=== PATIENT | male | born 1960 | race Caucasian/White ===

== ENCOUNTER 2024-07-29 18:16 | Emergency (ER) | payer MEDICARE, OTHER, SELFPAY ==
[2024-07-29 18:23] VITALS: BP 176/93
[2024-07-29 18:40] LABS: % Basophils 0.5 % (0-2); % Eosinophils 0.6 % (0-6); % Immature Granulocytes 0.8 % (0-0.5); % Lymphocytes 25.4 % (20.5-51.1); % Monocytes 7.2 % (1.7-9.3); % Neutrophils 65.5 % (42.2-75.2); Absolute Basophils 0.1 10^3/uL (0-0.2); Absolute Eosinophils 0.1 10^3/uL (0-0.7); Absolute Immature Granulocytes 0.1 10^3/uL (0-0.05); Absolute Lymphocytes 2.6 10^3/uL (1.2-3.4); Absolute Monocytes 0.7 10^3/uL (0.1-0.6); Absolute Neutrophils 6.8 10^3/uL (1.4-6.5); Hemoglobin 14.3 g/dL (13.0-18.0); Mean Corpuscular Hgb 30.2 pg (27.0-31.0); Mean Corpuscular Volume 88.6 fL (80.0-94.0); Mean Platelet Volume 9.4 fL (7.4-10.4); Nucleated Red Blood Cells % 0 % (-); Platelet Count 198 10^3/uL (130-400); Red Blood Cell Count 4.74 10^6/uL (4.70-6.10); Red Cell Dist. Width 13.2 % (11.5-14.5); White Blood Cell Count 10.3 10^3/uL (4.8-10.8)
[2024-07-29 18:41] LABS: Urine Albumin 1+ (Neg - Trace); Urine Bilirubin 1+ (Negative); Urine Character Clear (Clear); Urine Color Yellow; Urine Glucose Negative (Negative); Urine Ketone Negative (Negative); Urine Leukocyte Trace (Negative); Urine Nitrite Negative (Negative); Urine Occult Blood 4+ (Negative); Urine Urobilinogen 1+ (Neg - 1+)
[2024-07-29 18:50] LABS: Urine Mucus Many
[2024-07-29 18:51] LABS: Urine Red Blood Cell 30-40 /HPF (0-2); Urine Squamous Cell 0-2 /LPF (Few)
[2024-07-29 18:52] LABS: Urine Bacteria Few (Negative); Urine White Cell 0-2 /HPF (0-5)
[2024-07-29 18:57] LABS: ALT (SGPT) 20 U/L (0-50); AST (SGOT) 25 U/L (17-59); Albumin 4.8 g/dl (3.5-5.0); Alkaline Phosphatase 118 U/L (38-126); Blood Urea Nitrogen 18 mg/dl (9-20); Calcium 9.5 mg/dl (8.4-10.2); Carbon Dioxide 22 mmol/L (22-30); Chloride 105 mmol/L (98-107); Glucose 107 mg/dl (70-99); Potassium 4.3 mmol/L (3.5-5.1); Sodium 137 mmol/L (135-145); Total Bilirubin 0.5 mg/dl (0.2-1.3); Total Protein 7.1 g/dl (6.3-8.2); eGFR > 60.00
--- NOTE | 2024-07-29 22:34 | ED.GENMED ---
History of Present Illness
General
Chief Complaint: Flank Pain
Source: patient and significant other
Exam Limitations: none
Time Seen by Provider: 07/29/24 22:20
Nursing documentation reviewed up to this point in time: agreed with
History of Present Illness
History of Present Illness:
63-year-old male presents emergency room complaining of right flank pain since this morning, with nausea and vomiting. He admits to short flow with urination. He had a similar episode around .
Past History
Past History
ED Past Medical History: Other (HIV/AID)
ED Past Surgical History: Orthopedic (Left carpal tunnel), Tonsilectomy and Other (Ingrown toenail surgery, right groin I&D)
Social History
Tobacco: Non-smoker
Alcohol: Occasional
Personal: Single
Living: alone
Employment: Disabled
Review of Systems
Review of Systems
Allergies reviewed?: Yes
All Other Systems: Not applicable
Constitutional: Reports no symptoms; Denies fever
EENT: Reports no symptoms
Respiratory: Reports no symptoms
Cardiac: Reports no symptoms
ABD/GI: Reports nausea and vomiting
: Reports frequency and flank pain
Musculoskeletal: Reports no symptoms
Skin: Reports no symptoms
Neurological: Reports no symptoms
Endocrine: Reports no symptoms
Hematologic/Lymphatic: Reports no symptoms
Psychiatric: Reports no symptoms
Phy Exam
Physical Exam
Physical Exam:
Physical Exam
General: no apparent distress, not acutely ill
Neck: supple. no meningeal signs. normal posterior pharynx
Heart: s1/s2 regular rate and rhythm, no murmur. equal radial
pulses.
HEENT: Pupils equal round reactive to light, EOMI
Lungs: no acute respiratory distress. clear bilaterally
Abdomen: normal bowel sounds. not tender. no CVAT
Neuro: alert and oriented. no focal neurological deficits cranial nerves II through XII intact
Skin: no rash
Psychiatric: well kept. interactive and cooperative
Extremities: no edema. no calf tenderness. negative homans. good distal pulses
Course
Orders/Labs/Results
Orders:
Orders
07/29/24 18:34
CMP [Comprehensive Metabolic Panel] Urgent
Complete Blood Count/With Diff Urgent
Urinalysis Reflex To Culture Urgent
Date Specimen was Collected: 07/29/24
Time Specimen was Collected: 18:27
Urine Microscopic Reflex Cult Urgent
07/29/24 18:48
CT Abd/pel Without Iv Or Oral Urgent
Comment:
Reason For Exam: FLANK PAIN right sided hematuria
07/29/24 22:33
Ketorolac [Toradol] 15 mg IM NOW STA
Ondansetron Orally Disint [Zofran Odt (Orally Disintegrating)] 4 mg PO NOW STA
Abnormal Lab Results
07/29/24
18:34
Abs Immat Gran (auto) 0.1 H 10^3/uL
(0-0.05)
Absolute Neuts (auto) 6.8 H 10^3/uL
(1.4-6.5)
Absolute Monos (auto) 0.7 H 10^3/uL
(0.1-0.6)
Immature Gran % 0.8 H %
(0-0.5)
Glucose 107 H mg/dl
(70-99)
Ur Occult Blood Reflex 4+ A
(Negative)
Urine Bilirubin 1+ A
(Negative)
Leukocyte Esterase Rfl Trace A
(Negative)
Urine RBC 30-40 A /HPF
(0-2)
Urine Bacteria (Reflex) Few A
(Negative)
Urine Albumin (Reflex) 1+ A
(Neg - Trace)
07/29/24 18:34
07/29/24 18:34
Vital Signs
Initial and Last Documented VS:
Initial Vital Signs
Temp Pulse Resp BP Pulse Ox
98.2 F 86 18 176/93 95
07/29/24 18:23 07/29/24 18:23 07/29/24 18:23 07/29/24 18:23 07/29/24 18:23
Last Documented Vital Signs
Temp Pulse Resp BP Pulse Ox
98.2 F 86 18 17693 95
07/29/24 18:23 07/29/24 18:23 07/29/24 18:23 07/29/24 18:23 07/29/24 18:23
MDM/Problems Addressed
Differential Diagnosis Includes:
Kidney stone, appendicitis
MDM/Problems Addressed:
63-year-old male with right-sided kidney stone. Likely due to passed stone or small stone.
Chronic conditions affecting care: Other (HIV)
*Radiology
Radiology exam reviewed: radiology read reviewed (CT abdomen pelvis shows 5 mm kidney stone, and small punctate stones in the lower pole)
*Pulse Oximetry
Patient hypoxic: no
*Critical Care Note
Total Time (30-74mins, 75-104mins- exclusive of procedures): Not Applicable
Patient Management
Social determinants of health affecting care: Living situation
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
Escalation/DeEscalation of care consider admission/obs:
Admit not indicated
ED Attending Note
-
Portions of this chart may have been created with voice recognition software.� Occasional wrong word or��sound alike� substitutions may have occurred due to the inherent limitations of voice recognition software.
Discharge Plan
Departure
Patient Disposition: Home (Routine Discharge)
Date of Disposition: 07/29/24
Time of Disposition: 22:41
Patient with high blood pressure during this ER visit?: Yes
Condition: Good
Discharge Problem:
Acute right flank pain, Kidney stone on right side
Instructions: Kidney Stones (DC), Flank Pain (DC), BLOOD PRESSURE
Prescriptions:
New
ondansetron 4 mg tablet,disintegrating
4 mg PO Q8H PRN (Reason: nausea and vomiting) 7 Days Qty: 7 0RF
No Action
famotidine 20 MG tablet
20 mg PO HS
raltegravir [Isentress] 400 MG tablet
400 mg PO BID
omeprazole 20 MG tablet,delayed release (DR/EC)
20 mg PO BID
darunavir [Prezista] 600 MG tablet
600 mg PO BID
ritonavir 100 MG tablet
100 mg PO BID
etravirine [Intelence] 200 MG tablet
200 mg PO BID
Referrals:
Christiano Bear MD [Active] - Call in 1-3 days for appt
Archie Willams MD [Family Provider] -
Interventions
Interventions:
*Risk Screen - Suicide Last Done: 07/29/24 18:27
[facility]-Ccxlzv-Nnjgxokxca Assessment Last Done: 07/29/24 21:55
ED-Male Genitourinary Assessment Last Done: 07/29/24 21:55
Discharge Date and Time
Print Language: JAPANESE
[2024-07-29] MEDS: TORADOL 15 MG IM (22:45)
[2024-07-29] MEDS: ZOFRAN ODT (ORALLY DISINTEGRATING) 4 MG PO (22:45)
[2024-07-29 22:53] VITALS: BP 117/80
== END 2024-07-29 23:09 | disposition home or self-care (01) ==
LOC: EMR 18:16
PROVIDERS: Emergency Medicine; EMERGENCY PHYSICIAN Emergency Medicine; FAMILY PHYSICIAN Internal Medicine
DX: N20.0 Calculus of kidney (principal); R10.9 Unspecified abdominal pain
CPT/HCPCS: 99284; 96372; 74176; 80053; 81003; 81015; 85025

== ENCOUNTER 2024-08-09 22:36 | Inpatient (IN) | payer MEDICARE, OTHER, SELFPAY ==
[2024-08-09 18:00] VITALS: BP 183/101
--- NOTE | 2024-08-09 18:00 | ED.GENMED ---
ED Provider Triage
<Lila Morales PA-C - Last Filed: 08/09/24 18:03>
-
Patient seen by provider in Triage?: Seen in Triage
Attestation: A medical screening examination has been initiated by a qualified medical provider. Based on the assessment performed at this time, it has been determined that an emergent medical condition may exist and the patient has been informed
that further medical evaluation and possible additional diagnostic testing may be needed.
HPI: 63yoM here with R flank pain and vomiting. Urine appears dark. Seen in ED on 07/29 and diagnosed with an intrarenal stone. Pain more severe today.
GENERAL: Alert , in no apparent distress
EYE: No visual abnormalities.
NECK: Trachea midline
ENT: No visible abnormalities.
LUNGS: No acute respiratory distress
NEUROLOGICAL: Alert and oriented
SKIN: Skin intact. No visible changes.
MUSCULOSKELETAL: Moving extremities normally
PSYCH: Normal and appropriate interaction.
This is a medical evaluation conducted in person to initiate diagnostic evaluation and provide initial therapeutics. Please see further documentation by the treating clinician.
CBC, CMP, UA, and CT abdomen ordered.
History of Present Illness
<Lila Morales PA-C - Last Filed: 08/09/24 18:03>
General
Chief Complaint: Flank Pain
Time Seen by Provider: 08/09/24 20:19
<Isabelle Balbuena PA-C - Last Filed: 08/09/24 23:05>
General
Source: patient
Exam Limitations: none
Nursing documentation reviewed up to this point in time: agreed with
History of Present Illness
History of Present Illness:
pt is a 63 y/o M with h/o HIV on haart
followed by efrain
here on 07/29 with R flank pain and told he may have already passed a kidney stone; had blood in urine, no fever; 5 mm R renal pole stone only no sitns of obstruction
went home and was going to see uroogist outpatient but never got appt
started having nauesa/vomiting/'flu sickeness' which he has had the past few days, not feleing well
today vomited multiple times, feels dehydrated
and last night started with pain again R flank regio simlar to 07/29
pain is severe at times
mild low grade temp
no diarrhea
pt preseumed he got sick from being around a lot of people in the [place].
Past History
<Lila Morales PA-C - Last Filed: 08/09/24 18:03>
Past History
ED Past Medical History: Other (HIV/AID)
ED Past Surgical History: Orthopedic (Left carpal tunnel), Tonsilectomy and Other (Ingrown toenail surgery, right groin I&D)
Social History
Tobacco: Non-smoker
Alcohol: Occasional
Personal: Single
Living: alone
Employment: Disabled
Review of Systems
<Isabelle Balbuena PA-C - Last Filed: 08/09/24 23:05>
Review of Systems
Allergies reviewed?: Yes
All Other Systems: Not applicable
Phy Exam
<Isabelle Balbuena PA-C - Last Filed: 08/09/24 23:05>
Physical Exam
Physical Exam:
GENERAL: Alert, uncomfortable
Neck: supple
CARDIAC: Regular rate and rhythm .
LUNGS: Clear breath sounds bilaterally, no acute respiratory distress, no wheezes/rales/rhonchi
ABDOMEN: Soft, normal bowel sounds, nondistended, mild R flank tenderness, no guarding, no rebound, neg kidd's
: normal inspection of region
nontender testicles b/l
no rashes
NEUROLOGICAL: Alert and oriented, no focal neuro deficits
SKIN: Warm and dry, skin intact.
PSYCH: Normal and appropriate interaction.
Course
<Lila Morales PA-C - Last Filed: 08/09/24 18:03>
Orders/Labs/Results
Orders:
Orders
08/09/24 18:03
CT Abd/pel Without Iv Or Oral Urgent
Comment:
Reason For Exam: R flank pain
08/09/24 18:07
Complete Blood Count/With Diff Urgent
Comprehensive Metabolic Panel Urgent
08/09/24 18:11
Urinalysis Reflex To Culture Urgent
Date Specimen was Collected: 08/09/24
Time Specimen was Collected: 18:04
Urine Microscopic Reflex Cult Urgent
Urine Culture Urgent
SANTA Source: U
Specimen Description:
Date Specimen was Collected: 08/09/24
Time Specimen was Collected: 18:04
08/09/24 20:21
CefTRIAXone [Rocephin] 1,000 mg IV NOW STA
08/09/24 20:49
0.9% Sodium Chloride 1000 ml [Nss] 1,000 ml IV BOLUS
08/09/24 20:56
HYDROmorphone [Dilaudid] 0.5 mg IV NOW STA
Ketorolac [Toradol] 15 mg IV NOW STA
Ondansetron Injectable [Zofran] 4 mg IV NOW STA
Tamsulosin [Flomax] 0.4 mg PO NOW STA
08/09/24 22:00
Flush (0.9% Sodium Chloride) [Flush (Nss)] See Dose Instructions IV PER PROTOCOL
08/09/24 22:02
Nicotine [Nicoderm Transdermal] 7 mg TRANSDERM NOW STA
08/09/24 22:08
Admit/Transfer Patient As Directed
Co-Sign Provider:
Level of Care: Inpatient admission
Assign to:: Medical/Surgical
Physician / Group: Jodi Contreras
Diagnosis: right ureteral obstructing calculus, mild right hydronephrosis
Reason for Hospitalization: right ureteral obstructing calculus, mild right hydronephrosis
Expected length of stay greater than two midnights?: Yes
ELOS- Estimated Length of Stay in days: 3
I certify the patient meets the requirements for IP care: Yes
PRN Pain Medication Management As Directed
May give lesser potent ordered pain med per pt: Yes
preference::
Protocol:: Medication orders for pain may be administered in a
manner that supports deferring to patient preference
when the pt is:
- Requesting an ordered lesser potent pain medication.
Least to most potent pain medications are defined
as: acetaminophen < NSAID < tramadol < opioids
(morphine, oxycodone, hydromorphone).
- Requesting a lesser dose of the same medication IF
ORDERED.
- Requesting a less intrusive route of administration
if both routes are prescribed by the provider (PO <
IV).
08/09/24 22:10
Code Status As Directed
Resuscitation Status: Full Code
Abnormal Lab Results
08/09/24 08/09/24
18:07 18:11
Absolute Neuts (auto) 6.7 H 10^3/uL
(1.4-6.5)
Lymphocytes % 19.3 L %
(20.5-51.1)
Carbon Dioxide 21 L mmol/L
(22-30)
Glucose 105 H mg/dl
(70-99)
Urine Ketones Trace A
(Negative)
Ur Occult Blood Reflex 4+ A
(Negative)
Urine Nitrite (Reflex) Positive A
(Negative)
Urine Bilirubin 1+ A
(Negative)
Leukocyte Esterase Rfl Trace A
(Negative)
Urine RBC 80-90 A /HPF
(0-2)
Urine Bacteria (Reflex) Many A
(Negative)
Urine Albumin (Reflex) 1+ A
(Neg - Trace)
08/09/24 18:07
08/09/24 18:07
Vital Signs
Initial and Last Documented VS:
Initial Vital Signs
Temp Pulse Resp BP Pulse Ox
36.6 C 98 18 183/101 100
08/09/24 18:00 08/09/24 18:00 08/09/24 18:00 08/09/24 18:00 08/09/24 18:00
Last Documented Vital Signs
Temp Pulse Resp BP Pulse Ox
36.8 C 73 16 127/71 94
08/09/24 21:24 08/09/24 22:30 08/09/24 22:30 08/09/24 22:00 08/09/24 22:30
<Isabelle Balbuena PA-C - Last Filed: 08/09/24 23:05>
Orders/Labs/Results
Orders:
Orders
08/09/24 18:03
CT Abd/pel Without Iv Or Oral Urgent
Comment:
Reason For Exam: R flank pain
08/09/24 18:07
Complete Blood Count/With Diff Urgent
Comprehensive Metabolic Panel Urgent
08/09/24 18:11
Urinalysis Reflex To Culture Urgent
Date Specimen was Collected: 08/09/24
Time Specimen was Collected: 18:04
Urine Microscopic Reflex Cult Urgent
Urine Culture Urgent
SANTA Source: U
Specimen Description:
Date Specimen was Collected: 08/09/24
Time Specimen was Collected: 18:04
08/09/24 20:21
CefTRIAXone [Rocephin] 1,000 mg IV NOW STA
08/09/24 20:49
0.9% Sodium Chloride 1000 ml [Nss] 1,000 ml IV BOLUS
08/09/24 20:56
HYDROmorphone [Dilaudid] 0.5 mg IV NOW STA
Ketorolac [Toradol] 15 mg IV NOW STA
Ondansetron Injectable [Zofran] 4 mg IV NOW STA
Tamsulosin [Flomax] 0.4 mg PO NOW STA
08/09/24 22:00
Flush (0.9% Sodium Chloride) [Flush (Nss)] See Dose Instructions IV PER PROTOCOL
08/09/24 22:02
Nicotine [Nicoderm Transdermal] 7 mg TRANSDERM NOW STA
08/09/24 22:08
Admit/Transfer Patient As Directed
Co-Sign Provider:
Level of Care: Inpatient admission
Assign to:: Medical/Surgical
Physician / Group: Jodi Contreras
Diagnosis: right ureteral obstructing calculus, mild right hydronephrosis
Reason for Hospitalization: right ureteral obstructing calculus, mild right hydronephrosis
Expected length of stay greater than two midnights?: Yes
ELOS- Estimated Length of Stay in days: 3
I certify the patient meets the requirements for IP care: Yes
PRN Pain Medication Management As Directed
May give lesser potent ordered pain med per pt: Yes
preference::
Protocol:: Medication orders for pain may be administered in a
manner that supports deferring to patient preference
when the pt is:
- Requesting an ordered lesser potent pain medication.
Least to most potent pain medications are defined
as: acetaminophen < NSAID < tramadol < opioids
(morphine, oxycodone, hydromorphone).
- Requesting a lesser dose of the same medication IF
ORDERED.
- Requesting a less intrusive route of administration
if both routes are prescribed by the provider (PO <
IV).
08/09/24 22:10
Code Status As Directed
Resuscitation Status: Full Code
Abnormal Lab Results
08/09/24 08/09/24
18:07 18:11
Absolute Neuts (auto) 6.7 H 10^3/uL
(1.4-6.5)
Lymphocytes % 19.3 L %
(20.5-51.1)
Carbon Dioxide 21 L mmol/L
(22-30)
Glucose 105 H mg/dl
(70-99)
Urine Ketones Trace A
(Negative)
Ur Occult Blood Reflex 4+ A
(Negative)
Urine Nitrite (Reflex) Positive A
(Negative)
Urine Bilirubin 1+ A
(Negative)
Leukocyte Esterase Rfl Trace A
(Negative)
Urine RBC 80-90 A /HPF
(0-2)
Urine Bacteria (Reflex) Many A
(Negative)
Urine Albumin (Reflex) 1+ A
(Neg - Trace)
08/09/24 18:07
08/09/24 18:07
Vital Signs
Initial and Last Documented VS:
Initial Vital Signs
Temp Pulse Resp BP Pulse Ox
36.6 C 98 18 183/101 100
08/09/24 18:00 08/09/24 18:00 08/09/24 18:00 08/09/24 18:00 08/09/24 18:00
Last Documented Vital Signs
Temp Pulse Resp BP Pulse Ox
36.8 C 73 16 127/71 94
08/09/24 21:24 08/09/24 22:30 08/09/24 22:30 08/09/24 22:00 08/09/24 22:30
Alexlt;Isabelle Balbuena PA-C - Last Filed: 08/09/24 23:05>
MDM/Problems Addressed
Differential Diagnosis Includes:
ureteral lithaisis, uro sepsis
MDM/Problems Addressed:
room 15
clarence mcneill
63 yo M hiv pos on HAART, efrain
07/29 had R flank pain; no ureteral stone then, only 5 mm R renal pole stone
went home and got n/v illness that he thought was GI bug
but last nigth pain worse
now the previous pole stone is in prox R ureter obstructing and urine looks nitrite pos
temp 99.1
dw gabale
ivf, rocephin, pain meds, NPO after midnight likely stent tomorrow
<Isabelle Balbuena PA-C - Last Filed: 08/09/24 23:05>
*Critical Care Note
Total Time (30-74mins, 75-104mins- exclusive of procedures): Not Applicable
ED Attending Note
<Lial Morales PA-C - Last Filed: 08/09/24 18:03>
-
Portions of this chart may have been created with voice recognition software.� Occasional wrong word or��sound alike� substitutions may have occurred due to the inherent limitations of voice recognition software.
Discharge Plan
Departure
Patient Disposition: Admit
Date of Disposition: 08/09/24
Time of Disposition: 20:54
Admit to: Med/Surg
Presentation/result/management discussed w/ accepting MD/DO: Hospitalist
Condition: Fair
Covid-19: Not Applicable
Discharge Problem:
Acute UTI, Calculus of proximal right ureter
Interventions
Interventions:
*Risk Screen - Suicide Last Done: 08/09/24 18:00
*General Assessment Last Done: 08/09/24 18:00
*Neglect/Abuse Screening Last Done: 08/09/24 18:00
ED- Fall Risk Assessment Last Done: 08/09/24 21:27
*ED COVID-19 Vaccine History Last Done: 08/09/24 18:00
ZM-Oirdvw-Ypoydbqouz Assessment Last Done: 08/09/24 21:41
ED-Male Genitourinary Assessment Last Done: 08/09/24 21:41
[2024-08-09 18:19] LABS: Urine Albumin 1+ (Neg - Trace); Urine Bilirubin 1+ (Negative); Urine Character Clear (Clear); Urine Color Yellow; Urine Glucose Negative (Negative); Urine Ketone Trace (Negative); Urine Leukocyte Trace (Negative); Urine Nitrite Positive (Negative); Urine Occult Blood 4+ (Negative); Urine Specific Gravity 1.025 (<1.030); Urine Urobilinogen 1+ (Neg - 1+)
[2024-08-09 18:23] LABS: % Basophils 0.2 % (0-2); % Eosinophils 0.2 % (0-6); % Immature Granulocytes 0.4 % (0-0.5); % Lymphocytes 19.3 % (20.5-51.1); % Monocytes 6.7 % (1.7-9.3); % Neutrophils 73.2 % (42.2-75.2); Absolute Lymphocytes 1.8 10^3/uL (1.2-3.4); Absolute Monocytes 0.6 10^3/uL (0.1-0.6); Absolute Neutrophils 6.7 10^3/uL (1.4-6.5); Hematocrit 41.6 % (39.0-52.0); Hemoglobin 14.2 g/dL (13.0-18.0); Mean Corp Hgb Conc. 34.1 g/dL (33.0-37.0); Mean Corpuscular Hgb 30.2 pg (27.0-31.0); Mean Corpuscular Volume 88.5 fL (80.0-94.0); Mean Platelet Volume 10.1 fL (7.4-10.4); Nucleated Red Blood Cells % 0 % (-); Platelet Count 185 10^3/uL (130-400); White Blood Cell Count 9.2 10^3/uL (4.8-10.8)
[2024-08-09 18:30] LABS: Urine Red Blood Cell 80-90 /HPF (0-2)
[2024-08-09 18:31] LABS: Urine Bacteria Many (Negative); Urine Mucus Moderate; Urine White Cell 0-2 /HPF (0-5)
[2024-08-09 18:36] LABS: ALT (SGPT) 21 U/L (0-50); AST (SGOT) 23 U/L (17-59); Albumin 4.6 g/dl (3.5-5.0); Alkaline Phosphatase 116 U/L (38-126); Blood Urea Nitrogen 15 mg/dl (9-20); Calcium 9.1 mg/dl (8.4-10.2); Carbon Dioxide 21 mmol/L (22-30); Chloride 104 mmol/L (98-107); Glucose 105 mg/dl (70-99); Potassium 4.4 mmol/L (3.5-5.1); Sodium 137 mmol/L (135-145); Total Bilirubin 0.8 mg/dl (0.2-1.3); eGFR > 60.00
[2024-08-09] MEDS: ROCEPHIN 1000 MG IV (21:11)
[2024-08-09] MEDS: DILAUDID 0.5 MG IV (21:16)
[2024-08-09] MEDS: NSS 1000 IV (21:16)
--- NOTE | 2024-08-09 21:16 | HPS.HSE ---
Family Physician
-
Family Physician: Archie Willams
Chief Complaint
-
Nausea/vomiting and right flank pain
History of Present Illness
Patient is a 63-year-old male with past medical history significant for HIV positive and GERD who presented to [facility] for evaluation of continued severe right flank pain radiating to right abdomen and right back. Patient reports he was seen
07/29/2025 and found to have non-obstructing stone, was unable to follow up out patient as of now. He reports increased pain in right abdomen, right flank and right back with associated nausea and vomiting. He also reports dark tea colored urine
with some chills. Denies any fevers, cough, shortness of breath, chest pain, constipation or diarrhea.
Medical History
Past Medical History
Past Medical History: Reports Other
Additional Past Medical History:
HIV
GERD
Gout
nicotine dependency
Past Surgical History: Reports Other
Additional Past Surgical History:
right hand carpel tunnel
tonsillectomy
colonoscopy with polypectomy
rosotomy in neck and back
Social History
Tobacco: Smoker (2-3 cigarettes per day, 6 pack year history )
Alcohol: None
Drug: None
Personal: Single
Living: Alone
Employment: Disabled
Family History
Family History: Not pertinent
Allergies / Home Medications
Allergies reflects when Allergies were last updated in [facility].
Home Medications with original date entered in [facility]
Allergy/Medication List:
Allergies
Allergy/AdvReac Type Severity Reaction Status Date / Time
clindamycin Allergy Rash Verified 08/09/24 18:02
doxycycline Allergy Hives Verified 08/09/24 18:02
stavudine Allergy Pharmacy Verified 08/09/24 18:02
to Review
sulfamethoxazole Allergy Shooting Verified 08/09/24 18:02
[From Bactrim] pain in
arms and
legs
trimethoprim [From Bactrim] Allergy Shooting Verified 08/09/24 18:02
pain in
arms and
legs
Home Medications
darunavir 600 mg tablet (Prezista) 600 mg PO BID 05/13/21
etravirine 200 mg tablet (Intelence) 200 mg PO BID 05/13/21
famotidine 20 mg tablet 20 mg PO HS 05/13/21
omeprazole 20 mg tablet,delayed release 20 mg PO DAILYPRN PRN acid reflux 05/13/21
raltegravir 400 mg tablet (Isentress) 400 mg PO BID 05/13/21
ritonavir 100 mg tablet 100 mg PO BID 05/13/21
omega 2-tpp-ixo-fish oil 1,200 mg (144 mg-216 mg) capsule (Fish Oil) 1 cap PO QPM 08/09/24
therapeutic multivitamin 1 tab PO DAILY 08/09/24
Review of Systems
-
History Source: Patient
Constitutional: Reports Chills
EENT: Reports No Symptoms
Respiratory: Reports No Symptoms
Cardiac: Reports No Symptoms
Abdomen/GI: Reports Abdominal Pain, Nausea and Vomiting
: Reports No Symptoms
Musculoskeletal: Reports No Symptoms
Skin: Reports No Symptoms
Neurological: Reports No Symptoms
Endocrine: Reports No Symptoms
Hematologic/Lymphatic: Reports No Symptoms
Psych: Reports No Symptoms
Physical Exam
Vital Signs
Vital Signs
Temp Pulse Resp BP Pulse Ox
98 F 98 18 183/101 100
08/09/24 18:00 08/09/24 18:00 08/09/24 18:00 08/09/24 18:00 08/09/24 18:00
Physical Exam
General: Well Developed, Well Nourished, No Apparent Distress, Conversant and Pain
HEENT: NormoCephalic, Moist mucous membranes, Atraumatic, [place] Conjunctivae, Nose Appears Normal and Ears Appear Normal
Respiratory: Clear and Non Labored Respirations
Cardiac: S1/S2 and Regular Rhythm; No Murmur, Rub or Gallop
Breast: Deferred by me
GI: Soft, Normal Bowel Sounds and Tender; No Organomegaly
Rectal: Deferred by Provider
Genito-urinary: Deferred by me
Musculoskeletal: No Clubbing, No Cyanosis and No Edema
Skin: Warm and IV/Catheter Site; No Rash
Neuro: Awake, Alert, AO x 3 and Nonfocal/grossly intact
Psych: Calm and Intact Judgment/Insight
Laboratory Results
-
08/09/24 18:07
08/09/24 18:07
Laboratory Results
Total Bilirubin 0.8 mg/dl (0.2-1.3) 08/09/24 18:07
AST 23 U/L (17-59) 08/09/24 18:07
ALT 21 U/L (0-50) 08/09/24 18:07
Alkaline Phosphatase 116 U/L (38-126) 08/09/24 18:07
Data Reviewed
-
CT Scan: Report Reviewed by me (abd/Pelvis: 1). There is a 6 mm proximal right ureteral obstructing calculus associated with mild right hydronephrosis 2). 1 cm right renal cyst 3). Diverticuli are present in the colon no CT evidence of
diverticulitis)
Lab Data: Labs Reviewed by me
Impression/Plan
-
IMPRESSION/PLAN:
#right ureteral obstructing calculus
Abd/Pelvis CT: 1). There is a 6 mm proximal right ureteral obstructing calculus associated with mild right hydronephrosis
2). 1 cm right renal cyst
3). Diverticuli are present in the colon no CT evidence of diverticulitis
- Admit to med/surg
- Urology Consult
- IVF
- IV Rocephin
- pain regimen
- NPO after midnight
#HIV
- continue darunavir, etravirine, raltegravir and ritonavir
#GERD
- continue famotidine and omeprazole
#nicotine dependency
- nicotine patch
- encourage cessation
#Gout
Code Status: Full Code
DVT Prophylaxis: SCDs
[2024-08-09] MEDS: ZOFRAN 4 MG IV (21:17)
[2024-08-09] MEDS: FLOMAX 0.4 MG PO (21:19)
[2024-08-09] MEDS: TORADOL 15 MG IV (21:20)
[2024-08-09 21:25] VITALS: BP 140/94; BMI 33.5
[2024-08-09 22:00] VITALS: BP 127/71
--- NOTE | 2024-08-09 22:23 | W.PN.UPDATE ---
Update Note
Progress Note Update
Patient seen in conjunction with [employer]. I agree with the history and physical. I concur with the assessment and plan as stated.
This is a 63-year-old with past medical history of HIV on ART presenting to ED with recurrent episode of right flank plain. He was seen in july with R nephrolithiasis without obstruction. He now returns with flank pain, nausea/vomiting and
chills.
On arrival in ED hew as afebrile, temp was 98.2, blood pressure 180/100 with a pulse of 67. He was satting 100% on room air. There was no leukocytosis, electrolytes BUN/creatinine were all within normal range.
UA was positive for nitrites, leukocyte esterase and blood. There were also many bacteria.
CT of the abdomen and pelvis showed a 6 mm right renal calculus in the proximal ureter. No obvious hydronephrosis.
A&P
Right urolithiasis wit possible UTI
- admit to med/surg
- IV ceftriaxone
- iv fluids, tamsulosin, strain urine
- NPO after midnight
- No anticoagulation pending surgery
- continue usual ART
DVT PPX - SCDs
Code Status - full code
[2024-08-09] MEDS: NICODERM TRANSDERMAL 7 MG TRANSDERM (22:40)
[2024-08-09 23:00] VITALS: BP 129/74
[2024-08-10] VITALS (21 sets, daily range): BP systolic 109–153; BP diastolic 63–96
[2024-08-10] MEDS: NSS 1000 IV ×2 (00:36→08:56)
[2024-08-10] MEDS: NORVIR PO ×2 (01:17→10:01)
[2024-08-10] MEDS: ISENTRESS PO ×3 (01:17→08:55)
[2024-08-10 06:18] LABS: Hematocrit 37.6 % (39.0-52.0); Hemoglobin 12.3 g/dL (13.0-18.0); Mean Corp Hgb Conc. 32.7 g/dL (33.0-37.0); Mean Corpuscular Hgb 29.9 pg (27.0-31.0); Mean Corpuscular Volume 91.5 fL (80.0-94.0); Mean Platelet Volume 9.4 fL (7.4-10.4); Platelet Count 150 10^3/uL (130-400); Red Blood Cell Count 4.11 10^6/uL (4.70-6.10); Red Cell Dist. Width 13.1 % (11.5-14.5); White Blood Cell Count 5.4 10^3/uL (4.8-10.8)
[2024-08-10 06:31] LABS: Blood Urea Nitrogen 16 mg/dl (9-20); Calcium 8.1 mg/dl (8.4-10.2); Carbon Dioxide 27 mmol/L (22-30); Chloride 106 mmol/L (98-107); Estimated Creatinine Clearance 111 ml/min; Glucose 96 mg/dl (70-99); Potassium 4.2 mmol/L (3.5-5.1); Sodium 138 mmol/L (135-145); eGFR > 60.00
--- NOTE | 2024-08-10 07:25 | W.SUR.PREOP ---
Pre-Operative Surgical Note
-
I have examined this patient prior to the performance of the scheduled procedure.
The patient's condition is unchanged from the time of the current History and
Physical and the patient is able to undergo the scheduled procedure.
CTAP w/o IV contrast => 6 mm proximal right ureteral stone w/ mild hydro
UA => +nitrites, many bacteria, 80-90 RBCs, 0-2 WBCs
Afebrile.
HDS.
Urine notably cloudy upon ER evaluation last night.
Intermittent right flank/abdominal pain and nausea - improved w/ analgesics.
H/o HIV (diagnosed 1987) on HAART w/ ID.
Plan:
- To OR today for cysto + right stent insertion vs. right URS/LL/stone extraction/stent (if feasible)
- Continue IV Ceftriaxone pending UCx
- Surgical consent signed (@OR desk)
- If stent placement only, patient will F/U with Dr. Bear as outpatient to schedule ULS
Detailed discussion including SDM had w/ patient regarding risks, benefits, alternatives, and potential complications of URS/LL/stone extraction/stent insertion.
Risks and complications include but not limited to urosepsis, bleeding, ureteral/bladder injury, risk of ureteral stricture, need for additional procedures/surgeries.
D/w patient at bedside.
D/w Hospitalist.
--- NOTE | 2024-08-10 08:15 | W.PN.HOSP.TC ---
Today's Communication/Plan
-
Discharge today
Assessment / Plan
Assessment / Plan
Physical Exam
General: Well Developed, Well Nourished, No Apparent Distress, Conversant
HEENT: Normocephalic, Moist mucous membranes, Atraumatic
Respiratory: Clear to Auscultation Bilaterally
Cardiac: S1/S2 and Regular Rhythm
GI: Soft, Normal Bowel Sounds and Nontender
Musculoskeletal: No Cyanosis and No Edema
Skin: Warm
Neuro: Awake, Alert, AO x 3 and Nonfocal/grossly intact
Psych: Calm and Intact Judgment/Insight
Assessment/Plan
63-year-old male with past medical history significant for HIV positive and GERD who presented to [place] ED for evaluation of continued severe right flank pain radiating to right abdomen and right back. Patient reports he was seen 07/29/2025 and
found to have non-obstructing stone, was unable to follow up out patient as of now. He reports increased pain in right abdomen, right flank and right back with associated nausea and vomiting. He also reports dark tea colored urine with some chills.
Denies any fevers, cough, shortness of breath, chest pain, constipation or diarrhea.
#Right ureteral obstructing calculus status post cysto, stone dislodgement, stent placement
Abd/Pelvis CT: 1). There is a 6 mm proximal right ureteral obstructing calculus associated with mild right hydronephrosis
2). 1 cm right renal cyst
3). Diverticuli are present in the colon no CT evidence of diverticulitis
- Admit to med/surg
- Urology Consult
- IVF
- Cefpodoxime 200 mg BID for 9 days
- pain regimen
#HIV
- continue darunavir, etravirine, raltegravir and ritonavir
#GERD
- continue famotidine and omeprazole
#nicotine dependency
- nicotine patch
- encourage cessation
#Gout
Code Status: Full Code
DVT Prophylaxis: SCDs
More than 30 minutes spent in discharge including
Final examination of the patient
Summarizing hospital stay
Instructions for continuing care to all relevant caregivers
Preparation of discharge records, prescriptions, and referral forms
Total time spent (in minutes): 38
Anticipated Discharge: Today
Subjective/Interval History
-
Date of Service: August 10, 2024
Patient was seen and examined. Pain was under control.
Objective Data
-
Labs:
Laboratory Results
08/10/24
05:47
WBC 5.4
Hgb 12.3 L
Hct 37.6 L
Plt Count 150
Sodium 138
Potassium 4.2
Chloride 106
Carbon Dioxide 27
BUN 16
Creatinine 0.9
Glucose 96
Calcium 8.1 L
Vital Signs:
Vital Signs
Temp Pulse Resp BP Pulse Ox
98.2 F 72 16 121/78 97
08/10/24 00:37 08/10/24 05:30 08/10/24 05:30 08/10/24 05:46 08/10/24 05:48
[2024-08-10] MEDS: ZOFRAN 4 MG IV (08:54)
[2024-08-10] MEDS: DILAUDID 0.5 MG IV ×2 (08:58→12:57)
[2024-08-10] MEDS: THERAGRAN PO (10:01)
[2024-08-10] MEDS: TORADOL 10 MG IV (12:24)
[2024-08-10] MEDS: NORVIR 100 MG PO (13:50)
[2024-08-10] MEDS: THERAGRAN 1 TABLET PO (13:51)
[2024-08-10] MEDS: NON-FORMULARY ITEM 1 UNIT PO (13:58)
[2024-08-10] MEDS: NON-FORMULARY ITEM 200 MG PO (14:00)
--- NOTE | 2024-08-10 14:32 | W.IMMPOSTOP ---
Surgical Immed Post Op Note
-
Primary Surgeon: Alvaro
Pre-op Diagnosis: Right Ureteral Calculus; possible evolving infection
Post-op Diagnosis: same
Procedure Performed: cysto, stone dislodgement, stent placement
Anesthesia Type: LMA
Specimen / Cultures: none
Estimated Blood Loss: none
Complications: none
Operative Findings: cloudy urine in bladder; more pronounced in urine propulsed from right ureter following relief of obstruction
[2024-08-10] MEDS: ISENTRESS 400 MG PO (15:03)
== END 2024-08-10 18:46 | disposition home or self-care (01) | DRG 660 ==
LOC: PACUI 22:36
PROVIDERS: Nurse Practitioner Family; Physician Assistant; Specialist; ADMITTING PHYSICIAN Internal Medicine; ATTENDING PHYSICIAN Hospitalist; EMERGENCY PHYSICIAN Emergency Medicine; FAMILY PHYSICIAN Internal Medicine
PROC: 0T768DZ Dilation of Right Ureter with Intraluminal Device, Via Natural or Artificial Opening Endoscopic (ICD-10-PCS; 2024-08-10)
DX: N20.2 Calculus of kidney with calculus of ureter (principal); N13.6 Pyonephrosis; F17.210 Nicotine dependence, cigarettes, uncomplicated; K21.9 Gastro-esophageal reflux disease without esophagitis; M10.9 Gout, unspecified; Z21 Asymptomatic human immunodeficiency virus [HIV] infection status
CPT/HCPCS: 74018; 74176; 76000; 80048; 80053; 81003; 81015; 85025; 85027; 87086; C2617

== ENCOUNTER 2024-08-22 06:23 | Day surgery (SDC) | payer MEDICARE, OTHER, SELFPAY ==
[2024-08-22] VITALS (7 sets, daily range): BP systolic 124–147; BP diastolic 73–96; BMI 34.3
[2024-08-22] MEDS: NORMOSOL-R/PLASMALYTE-A 1000 IV (13:10)
[2024-08-22] MEDS: Pyridium 200 MG PO (15:58)
[2024-08-22] MEDS: SUBLIMAZE 25 MCG IV (16:01)
[2024-08-22] MEDS: DETROL LA 4 MG PO (16:05)
== END 2024-08-22 17:16 | disposition home or self-care (01) ==
LOC: SDS 06:23
PROVIDERS: Radiology Diagnostic Radiology; ATTENDING PHYSICIAN Surgery
PROC: 0T768DZ Dilation of Right Ureter with Intraluminal Device, Via Natural or Artificial Opening Endoscopic (ICD-10-PCS; 2024-08-22)
PROC: 0TC38ZZ Extirpation of Matter from Right Kidney Pelvis, Via Natural or Artificial Opening Endoscopic (ICD-10-PCS; 2024-08-22)
PROC: BT1D1ZZ Fluoroscopy of Right Kidney, Ureter and Bladder using Low Osmolar Contrast (ICD-10-PCS; 2024-08-22)
DX: N20.0 Calculus of kidney (principal)
CPT/HCPCS: 52356; 74420; 76000; 82365; 93005; A4300; C1769; C1894; C2617

== ENCOUNTER → 2025-01-06 12:08 | Outpatient (REF) | payer MEDICARE, OTHER, SELFPAY | LOC: HWRAD 12:08 | PROVIDERS: ATTENDING PHYSICIAN Surgery; FAMILY PHYSICIAN Internal Medicine | DX: N20.0 Calculus of kidney (principal) | CPT/HCPCS: 76770 ==

== ENCOUNTER → 2025-06-17 06:29 | Outpatient (REF) | payer MEDICARE, OTHER, SELFPAY | LOC: MRI 06:29 | PROVIDERS: ATTENDING PHYSICIAN Internal Medicine Nephrology | DX: M54.50 Low back pain, unspecified (principal); M54.16 Radiculopathy, lumbar region | CPT/HCPCS: 72148 ==